=== PATIENT | female | born 1945 | race Caucasian/White ===

== ENCOUNTER 2016-06-29 19:28 | Emergency (ER) | payer MEDICARE, OTHER | END 2016-06-29 22:33 | disposition home or self-care (01) | LOC: ER 19:28 | DX: E11.65 Type 2 diabetes mellitus with hyperglycemia (principal); I10 Essential (primary) hypertension; Z90.710 Acquired absence of both cervix and uterus; Z79.4 Long term (current) use of insulin; Z88.8 Allergy status to other drugs, medicaments and biological substances | CPT/HCPCS: 82962; 99282; 99284 ==

== ENCOUNTER 2016-07-04 16:00 | Emergency (ER) | payer MEDICARE, OTHER | END 2016-07-04 18:30 | disposition home or self-care (01) | LOC: ER 16:00 | DX: N39.0 Urinary tract infection, site not specified (principal); M54.9 Dorsalgia, unspecified ==